=== PATIENT | female | born 1980 | race Caucasian/White ===

== ENCOUNTER 2017-01-28 22:04 | Emergency (ER) | payer SELFPAY | END 2017-01-28 23:56 | disposition home or self-care (01) | PROVIDERS: Emergency Provider Emergency Medicine; Family Provider Emergency Medicine; Visit Provider Emergency Medicine | DX: S52.091A Other fracture of upper end of right ulna, initial encounter for closed fracture (principal); Y04.2XXA Assault by strike against or bumped into by another person, initial encounter; Y92.019 Unspecified place in single-family (private) house as the place of occurrence of the external cause; F10.10 Alcohol abuse, uncomplicated; F17.210 Nicotine dependence, cigarettes, uncomplicated | CPT/HCPCS: 29105; 73080; 73090; 99284 ==

== ENCOUNTER → 2017-01-31 | Outpatient (CLI) | payer SELFPAY | PROVIDERS: Family Provider Emergency Medicine; Visit Provider Orthopaedic Surgery | DX: M54.2 Cervicalgia (principal) | CPT/HCPCS: 71020; 72050 ==

== ENCOUNTER → 2017-02-01 | Outpatient (CLI) | payer SELFPAY | PROVIDERS: Visit Provider Orthopaedic Surgery | DX: S52.021A Displaced fracture of olecranon process without intraarticular extension of right ulna, initial encounter for closed fracture (principal); Z01.812 Encounter for preprocedural laboratory examination | CPT/HCPCS: 36415; 80048; 81025; 85025 ==

== ENCOUNTER 2017-02-07 08:38 | Day surgery (SDC) | payer OTHER, SELFPAY ==
[2017-02-07] VITALS (12 sets, daily range): BP systolic 127–165; BP diastolic 71–94; PULSE 70–90; RESP 18–20; TEMP 36.2–43; O2SAT 97–100; BMI 22.0
--- NOTE | 2017-02-07 10:30 | HMH.ANESCL ---
[facility] Anesthesia Checklist - Structural Data Admitted From: Home Planned Operative Procedure/s: orif l elbow fx Consent for Planned Operative Procedure(s) Verified: Yes Verified Documents: Surgical Consent - NPO Status Verified Time NPO: 21:30 - Chart Verification Results Verified: CBC, Chest Xray, HCG - Additional verifications Anesthesia Reactions: No - Airway Assessment C-Spine Mobility Assessed: Yes TMJ Mobility Assessed: Yes Dentition: Edentulous - Neurological Assessment Level of Consciousness: Awake, Alert Hx Seizures: No - Psychosocial Assessment Concerns Regarding Surgery: pt very anxious - Anesthesia Plan Anesthesia Risk discussed: Yes Anesthesia Plan: Verified ASA Class: II Anesthesia Type: General - Preoperative Comments Pre-Operative Comments: very nervous/anxious [facility] Anesthesia HX I have reviewed the patient's past medical history: Yes Medical History: Denies:: Cancer, Diabetes Mellitus Type 1, Diabetes Mellitus Type 2, MRSA, Seizures Other Medical History: Denies: Blood Transfusion Reaction Amputation: No Fractures: No *Family Hx:: Asthma, Cancer, Coronary Artery Disease, Diabetes, Heart Attack, Hyperlipidemia, Hypertension, Stroke, Thyroid Disorder
--- NOTE | 2017-02-07 10:34 | P.PN_ITS ---
[facility] Anesthesia Checklist - Structural Data Admitted From: Home Planned Operative Procedure/s: orif l elbow fx Consent for Planned Operative Procedure(s) Verified: Yes Verified Documents: Surgical Consent - NPO Status Verified Time NPO: 21:30 - Chart Verification Results Verified: CBC, Chest Xray, HCG - Additional verifications Anesthesia Reactions: No - Airway Assessment C-Spine Mobility Assessed: Yes TMJ Mobility Assessed: Yes Dentition: Edentulous - Neurological Assessment Level of Consciousness: Awake, Alert Hx Seizures: No - Psychosocial Assessment Concerns Regarding Surgery: pt very anxious - Anesthesia Plan Anesthesia Risk discussed: Yes Anesthesia Plan: Verified ASA Class: II Anesthesia Type: General - Preoperative Comments Pre-Operative Comments: very nervous/anxious [facility] Anesthesia HX I have reviewed the patient's past medical history: Yes Medical History: Denies:: Cancer, Diabetes Mellitus Type 1, Diabetes Mellitus Type 2, MRSA, Seizures Other Medical History: Denies: Blood Transfusion Reaction Amputation: No Fractures: No *Family Hx:: Asthma, Cancer, Coronary Artery Disease, Diabetes, Heart Attack, Hyperlipidemia, Hypertension, Stroke, Thyroid Disorder
--- NOTE | 2017-02-07 13:00 | FL_ITS ---
[place] fluoroscopy <1hr CLINICAL INDICATION: ITS.REASON: ORIF ORDERING PHYSICIAN: Jeremie Quiroga MD PATIENT AGE: 36 years Fluoroscopy time: 1 minute and 58 seconds COMPARISON: 01/28/2017 FINDINGS: Multiple images submitted with C-arm show interval ORIF of the displaced olecranon fracture. Bone plate was placed with good alignment of the fracture fragments. IMPRESSION: Status post ORIF olecranon fracture with good alignment
--- NOTE | 2017-02-07 17:40 | HMH.ANESI ---
[facility] Anesthesia Record Part I Intake, IV Amount: 1,400 Estimated blood loss (mL): 50 Urine output (mL): 0 Blood Pressure: 159/94 SaO2: 97 Pulse Rate: 85 Respiratory Rate: 18 Temperature: 97.1 F Patient is:: Awake, Stable
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
--- NOTE | 2017-02-07 17:42 | P.PN_ITS ---
[facility] Anesthesia Record Part II Discharge Time: 18:06 Destination: Unknown PACU nurse assessment reviewed?: Yes Patient Condition:: Good Anesthesia Complications:: None
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
--- NOTE | 2017-02-07 18:03 | XR_ITS ---
XR elbow RT 2V HISTORY: Follow-up ORIF/fracture/pain ITS.REASON: ORIF RT. ELBOW ORDERING PHYSICIAN: Jeremie Quiroga MD PATIENT AGE: 36 years COMPARISON: 01/28/2017 FINDINGS: 3 images show interval placement of a posterior bone plate along the proximal ulna with multiple screws with good alignment of the fracture fragments of the proximal ulna. There is been interval reduction of the displacement previously noted. There is now anatomic alignment. IMPRESSION: Good alignment status post ORIF fracture
--- NOTE | 2017-02-07 18:42 | PC.NURSE ---
Brusing noted to right hand with edema. Pt wiggling fingers and reports tingling sensation. Sluggish cap refill noted to right hand. At 1744, pt reported pain level 10/10. Pt medicated per LUCIO Parker with Fentanyl IV ( see anesthesia record ). VSS.
--- NOTE | 2017-02-07 18:45 | PC.NURSE ---
1735-Bruising and edema noted to right hand. Pt reports unable to wiggle fingers at this time but is able to feel tingling sensation and painful stimuli. Sluggish Cap refill noted to right hand. Pt reports pain to right arm and rates 10/10. Anesthesia notified. Pt awakening and following commands. VSS.
--- NOTE | 2017-02-07 18:51 | PC.NURSE ---
1755-Bruising noted to right hand with edema. Pt continues to wiggle rt fingers and hand. Pt moving RUE. Pt reports tingling sensation to rt hand. Strong pulses noted. Pt reports pain to right arm and rates 8/10. At 1750, pt medicated with Toradol 30mg IM inj to left deltoid as ordered per APR. VSS.
--- NOTE | 2017-02-07 19:00 | PC.NURSE ---
1815-Brusing/edema remains to right hand. Pt reports increased sensation and continues to wiggle fingers. Pt reports pain to right arm and rates 5/10. Medicated per APR w/Morphine 2mg IV. VSS.
--- NOTE | 2017-02-07 19:03 | PC.NURSE ---
1805-Bruisng and edema to right hand. Pt wiggling fingers and reports tingling sensation. Cap refill improving with good pulses noted. At 1758, pt reported pain to right arm and rates 8/10. Medicated per MAR with Morphine 2mg IV. At 180, Pt reports pain minimally easing to right arm and rates 6/10. Medicated per MAR with Morphine 2mg IV. VSS.
--- NOTE | 2017-02-07 19:06 | PC.NURSE ---
1818-Brusing/edema to right hand. Pt wiggling right hand and RUE with sensation noted. Pt reports pain is easing and rates 4/10 but worsens intermittently with movement. Detailed report called to JOSE Meraz. Pt transported to post op via stretcher w/rails up and left in care of JOSE Meraz w/bed locked in lowest position. VSS. Pt stable.
== END 2017-02-07 19:00 | disposition home or self-care (01) ==
LOC: OR 08:41
PROVIDERS: Family Provider Emergency Medicine; PCP Emergency Medicine; Visit Provider Orthopaedic Surgery
PROC: (CPT 24685; principal; 2017-02-07 11:00)
DX: S52.031A Displaced fracture of olecranon process with intraarticular extension of right ulna, initial encounter for closed fracture (principal); W18.39XA Other fall on same level, initial encounter
CPT/HCPCS: 24685; 73070; 76000; C1713; C1769; C1776; J0131; J0330

== ENCOUNTER → 2017-02-21 14:41 | Outpatient (CLI) | payer OTHER, SELFPAY ==
--- NOTE | 2017-02-21 14:43 | XR_ITS ---
XR elbow RT 2V HISTORY: Follow-up fracture/surgery ITS.REASON: post op ORDERING PHYSICIAN: Jeremie Quiroga MD PATIENT AGE: 36 years COMPARISON: 02/07/2017 FINDINGS: Posterior bone plate remains in place at the proximal ulna with multiple screws. There remains good alignment of the olecranon fracture with fracture line is less well defined suggesting healing. IMPRESSION: Good alignment status post ORIF olecranon fracture
== END ==
PROVIDERS: PCP Emergency Medicine; Visit Provider Orthopaedic Surgery
DX: Z48.89 Encounter for other specified surgical aftercare (principal)
CPT/HCPCS: 73070

== ENCOUNTER → 2017-02-28 09:34 | Outpatient (REF) | payer OTHER, SELFPAY ==
[2017-02-28 14:01] LABS: Amphetamine/Metha Screen,Urine Negative ng/mL (<1000); Barbiturates Screen,Urine Negative ng/mL (<200); Benzodiazepines Screen,Urine Negative ng/mL (200); Cannabinoid Screen,Urine Positive ng/mL (<50); Cocaine Screen,Urine Positive ng/g (<300); Methadone Screen,Urine Negative ng/mL (<300); Opiate Screen,Urine Negative ng/mL (<300); Phencyclidine Screen,Urine Negative ng/mL (<25)
== END ==
LOC: LAB 09:34
PROVIDERS: Visit Provider Physician Assistant
DX: Z79.899 Other long term (current) drug therapy (principal)
CPT/HCPCS: 80305

== ENCOUNTER → 2017-03-14 12:52 | Outpatient (CLI) | payer OTHER, SELFPAY ==
--- NOTE | 2017-03-14 12:56 | XR_ITS ---
XR elbow RT min 3V HISTORY: Follow-up ORIF/fracture ITS.REASON: postoperative ORIF RT elbow. ORDERING PHYSICIAN: Jeremie Quiroga MD PATIENT AGE: 36 years COMPARISON: 02/21/2017 FINDINGS: Posterior bone plate remains in place stabilizing the old olecranon process fracture. There is good alignment of fracture fragments. Fracture line is barely visible on the frontal view. IMPRESSION: Overall no change in good alignment status post ORIF healing proximal ulnar fracture
--- NOTE | 2017-03-14 12:56 | XR_ITS ---
XR hand RT min 3V HISTORY: Hand pain ITS.REASON: Hand pain ORDERING PHYSICIAN: Jeremie Quiroga MD PATIENT AGE: 36 years COMPARISON: None FINDINGS: No fracture or dislocation. No lytic or blastic change. There is normal mineralization.. The joint spaces are well-preserved. No significant degenerative/arthritic changes. No erosive changes evident.. IMPRESSION: Negative right hand, no acute finding
--- NOTE | 2017-03-14 12:56 | XR_ITS ---
XR wrist RT min 3V HISTORY: ITS.REASON: wrist pain ORDERING PHYSICIAN: Jeremie Quiroga MD PATIENT AGE: 36 years COMPARISON: None FINDINGS: No acute fracture or dislocation is evident. There is cortical irregularity involving the dorsal aspect of the mid wrist as seen on the lateral view and may be due to an old avulsion fracture of the triquetrum. The defect is well-circumscribed. No other significant anomalies. IMPRESSION: Suspect old triquetral avulsion fracture otherwise negative. This may be confirmed with CT if clinically warranted
== END ==
PROVIDERS: PCP Physician Assistant; Visit Provider Orthopaedic Surgery
DX: M79.641 Pain in right hand (principal); S69.91XA Unspecified injury of right wrist, hand and finger(s), initial encounter
CPT/HCPCS: 73080; 73110; 73130

== ENCOUNTER 2017-03-29 11:00 | Outpatient (RCR) | payer OTHER, SELFPAY ==
--- NOTE | 2017-03-20 14:42 | HMH.PTOPEV ---
Rehab Outpatient Evaluation Rehab OP Evaluation Start: 03/20/17 13:40 Freq: Status: Active Protocol: Document 03/20/17 13:41 TFRY (Rec: 03/20/17 13:59 TFRY [id number]) Electronically Signed By Viola Buenrostro OT 03/20/17 13:41 Outpatient Therapy Subjective History Subjective History THIS IS A 36 YEAR OLD RIGHT HANDED FEMALE REFERRED TO OCCUPATIONAL THERAPY PATIENT S/P ORIF RIGHT OLECRANON AND LEFT ELBOW TENNIS ELBOW. PATIENT STATES THAT SHE HURT HER ELBOW RIGHT ON January, AND UNDERWENT SURGERY ON IT February AND HURT HER LEFT ELBOW BECAUSE OF OVERUSE. Chief Complaint Pain Stiff Symptom Type Ache Throb Shooting Symptoms Relieved By Rest/Positioning Symptoms Aggravated By Physical Activity Prior Functional Limitations None Current Functional Limitations Reaching Lifting Housework Dressing Sleeping Symptom Description Constant but Variable Level of pain today (0-10) 8 Pain scale - at its best (0-10) 5 Pain scale - at its worst (0-10) 10 Shoulder/Elbow Eval Shoulder Objective Measurements Elbow Objective Measurements Palpation Tenderness Elbow Palpation Finding Tenderness tenderness elbow exam standard left tenderness over the lateral epicondyle left elbow exam standard Elbow ROM Left full ROM elbow exam standard left Right decreased ROM elbow exam standard right pain with active ROM elbow exam standard right pain with passive ROM elbow exam right standard Elbow Extension Active Range of Motion ( -32 degrees) Elbow Extension Passive Range of Motion -22 (degrees) Elbow Flexion Active Range of Motion ( 70 degrees) Elbow Flexion Passive Range of Motion ( 80 degrees) Elbow Pronation of Forearm Range of WFL Motion (degrees) Elbow Supination of Forearm Range of WFL Motion (degrees) Elbow ROM Limitations Pain Elbow MMT Left Elbow Flexion Strength Grade 4 Good Elbow Extension Strength Grade 4 Good Right Elbow/Forearm Strength Reason Not Orthopedic Precautions Measured Outpatient Therapy Assessment Impairments P
== END 2017-03-29 11:01 | disposition home or self-care (01) ==
LOC: OT 11:00
PROVIDERS: Family Provider Emergency Medicine; PCP Physician Assistant; Visit Provider Orthopaedic Surgery
DX: S59.909A Unspecified injury of unspecified elbow, initial encounter (principal)
CPT/HCPCS: 97033; 97110; 97140; 97163; 97166

== ENCOUNTER → 2017-04-04 10:33 | Outpatient (CLI) | payer OTHER, SELFPAY ==
--- NOTE | 2017-04-04 10:36 | XR_ITS ---
XR elbow RT 2V HISTORY: Follow-up fracture/ORIF ITS.REASON: status post RT ORIF elbow ORDERING PHYSICIAN: Jeremie Quiroga MD PATIENT AGE: 36 years COMPARISON: 03/14/2017 FINDINGS: Status post ORIF with posterior bone plate at the proximal humerus and olecranon region stabilizing an olecranon fracture. Fracture line is fairly visible along its deep margin. No other significant anomalies are evident. IMPRESSION: Good alignment status post ORIF healing olecranon fracture
== END ==
PROVIDERS: PCP Physician Assistant; Visit Provider Orthopaedic Surgery
DX: S52.023A Displaced fracture of olecranon process without intraarticular extension of unspecified ulna, initial encounter for closed fracture (principal); Z48.89 Encounter for other specified surgical aftercare
CPT/HCPCS: 73070

== ENCOUNTER → 2017-10-25 14:22 | Outpatient (CLI) | payer OTHER, SELFPAY ==
--- NOTE | 2017-10-25 14:25 | XR_ITS ---
XR elbow RT min 3V HISTORY: Follow-up fracture ITS.REASON: sp ORIF right elbow 02/08/17; having pain ORDERING PHYSICIAN: Jeremie Quiroga MD PATIENT AGE: 37 years COMPARISON: 06/17/2017 FINDINGS: There is a bone plate over the proximal and dorsal aspect of the humerus with multiple screws as well as a longitudinal screw within the lateral olecranon. No acute fracture or dislocation. No lytic or blastic change. No displaced fat pad. IMPRESSION: Prior ORIF proximal humerus. No change with no acute finding.
== END ==
PROVIDERS: PCP Physician Assistant; Visit Provider Orthopaedic Surgery
DX: M25.521 Pain in right elbow (principal)
CPT/HCPCS: 73080